=== PATIENT | female | born 1995 | race Caucasian/White ===

== ENCOUNTER 2016-06-27 09:21 | Emergency (ER) | payer OTHER, SELFPAY ==
[2016-06-27 10:17] LABS: Bilirubin Negative (Negative); Blood, Urine Moderate (Negative); Clarity Clear (Clear); Glucose, Urine (Dipstick) Negative (Negative); Leukocyte Negative (Negative); Nitrite Negative (Negative); Protein, Urine (Dipstick) Negative (Neg-Trace); Specific Gravity, Urine 1.015 (1.005-1.030); Urobilinogen 0.2 mg/dL (0.2-1.0)
[2016-06-27 10:18] LABS: #Basophils 0.1 thou/uL (0.0-0.2); #Eosinphils 0.3 thou/uL (0.0-0.7); #Monocytes 0.4 thou/uL (0.11-0.59); #Neutrophils 4.7 thou/uL (1.40-6.50); %Eosinophils 3.6 % (0.0-10.0); %Lymphocytes 26.7 % (28.0-48.0); %Monocytes 5.2 % (0.0-4.0); %Neutrophils 63.6 % (31.0-61.0); Hemoglobin 14.8 g/dL (12.0-16.0); Mean Corpuscular HGB CONC 33.2 g/dL (32.0-36.0); Mean Corpuscular Hemoglobin 29.5 pg (25.0-35.0); Mean Corpuscular Volume 88.9 fl (77.0-87.0); Mean Platelet Volume 6.7 fL (7.4-10.4); Platelet Count 266 thou/uL (130-400); RBC Distribution Width 12.6 % (11.5-14.5); Red Blood Cell (RBC) Count 5.02 mill/uL (4.00-5.20); White Blood Cell (WBC) Count 7.3 thou/uL (4.8-10.8)
[2016-06-27 10:28] LABS: Bacteria/HPF Rare-Few HPF (None Seen); WBC/HPF 0-3 HPF (0-3)
[2016-06-27] MEDS ORDERED: Naproxen 500 MG TAB ONE (10:47)
== END 2016-06-27 10:50 | disposition home or self-care (01) ==
LOC: MADERS 09:21
DX: N94.6 Dysmenorrhea, unspecified (principal); F31.9 Bipolar disorder, unspecified; F41.9 Anxiety disorder, unspecified; F17.210 Nicotine dependence, cigarettes, uncomplicated
CPT/HCPCS: 36415; 81003; 81015; 84702; 85025; 87086; 99284

== ENCOUNTER 2018-07-27 02:44 | Emergency (ER) | payer SELFPAY ==
--- NOTE | 2018-07-27 08:07 | RAD ---
FRadiograph left elbow 4 views: HISTORY: 22-year-old female with foreign body at elbow FINDINGS: There is a thin, short metallic foreign body density in the superficial soft tissues at the anterior lateral aspect of the elbow. There is no osseous abnormality. No fracture or joint effusion. IMPRESSION: Foreign body in superficial soft tissues
== END 2018-07-27 03:34 | disposition home or self-care (01) ==
LOC: MADERS 02:44
DX: S51.042A Puncture wound with foreign body of left elbow, initial encounter (principal); F41.9 Anxiety disorder, unspecified; F31.9 Bipolar disorder, unspecified; F17.210 Nicotine dependence, cigarettes, uncomplicated; W46.1XXA Contact with contaminated hypodermic needle, initial encounter

== ENCOUNTER 2019-11-30 23:58 | Emergency (ER) | payer SELFPAY ==
[2019-12-01] MEDS ORDERED: Penicillin V Potassium 250 MG TAB ONE (00:36)
== END 2019-12-01 00:45 | disposition home or self-care (01) ==
LOC: MADERS 23:58
DX: K04.4 Acute apical periodontitis of pulpal origin (principal); K02.9 Dental caries, unspecified; F15.10 Other stimulant abuse, uncomplicated; F41.9 Anxiety disorder, unspecified; F31.9 Bipolar disorder, unspecified; F17.210 Nicotine dependence, cigarettes, uncomplicated
CPT/HCPCS: 99282

== ENCOUNTER 2024-12-27 13:19 | Emergency (ER) | payer OTHER, SELFPAY ==
[2024-12-27] MEDS ORDERED: predniSONE 20 MG TAB ONE (14:17)
[2024-12-27] MEDS ORDERED: Albuterol 2.5 MG (3 mL) NEB ONE (14:17)
== END 2024-12-27 15:10 | disposition home or self-care (01) ==
LOC: MADERS 13:19
DX: J06.9 Acute upper respiratory infection, unspecified (principal); R00.0 Tachycardia, unspecified; R06.2 Wheezing; F17.210 Nicotine dependence, cigarettes, uncomplicated
CPT/HCPCS: 71045; 87426; 93005; 94760; J7030; J7512; J7611

== ENCOUNTER 2025-02-03 19:07 | Emergency (ER) | payer OTHER ==
[2025-02-03] MEDS ORDERED: Albuterol 2.5 MG (0.5 mL) NEB ONE (19:40)
[2025-02-03] MEDS ORDERED: Ipratropium Bromide 2.5 ml Neb ONE (19:40)
[2025-02-03] MEDS ORDERED: predniSONE 20 MG TAB ONE (20:20)
[2025-02-03] MEDS ORDERED: predniSONE 10 MG TAB ONE (20:20)
== END 2025-02-03 20:24 | disposition home or self-care (01) ==
LOC: MADERS 19:07
DX: J98.01 Acute bronchospasm (principal); R00.0 Tachycardia, unspecified; F17.210 Nicotine dependence, cigarettes, uncomplicated
CPT/HCPCS: J2919; J7120; J7512; J7611; J7644